=== PATIENT | female | born 1940 | race Caucasian/White ===

== ENCOUNTER → 2016-11-13 | Outpatient (CLI) | payer MEDICARE | LOC: SP 17:19 | PROVIDERS: ATTEND Internal Medicine | DX: I82.412 Acute embolism and thrombosis of left femoral vein (principal) | CPT/HCPCS: 93971 ==

== ENCOUNTER 2017-01-02 14:39 | Emergency (ER) | payer MEDICARE ==
--- NOTE | 2017-01-02 14:55 | ER Document Report ---
ED Medical Screen (RME) - General Stated Complaint: LEG RED AND SWELLING Time seen by provider: 14:52 Mode of Arrival: Wheelchair Information source: Patient Notes: 76-year-old female presents to ED for redness and swelling to the left lower leg for the last couple days. She states she was diagnosed with blood clots with the same symptoms. She states she is under the care of Dr. Rai Matias for blood clots at and has been on blood thinners for about 4 months. She states she's on the leg was. She states she is very sedentary. Spoke with Dr. Kimbrough will order a venous Doppler for the left lower extremity. I have greeted and performed a rapid initial assessment of this patient. A comprehensive ED assessment and evaluation of the patient, analysis of test results and completion of medical decision making process will be conducted by an additional ED providers. TRAVEL OUTSIDE OF THE [place] IN LAST 30 DAYS: No - Related Data Allergies/Adverse Reactions: lactose Allergy (Intermediate, Verified 03/19/16 14:01) Diarrhea azithromycin [From Zithromax] Allergy (Verified 03/19/16 14:01) cephalexin [Cephalexin] Allergy (Verified 02/05/16 03:26) hydroxyzine [Hydroxyzine] Allergy (Verified 02/05/16 03:26) oxycodone HCl [From Percodan] Allergy (Verified 02/05/16 03:26) piroxicam [From Feldene] Allergy (Verified 02/05/16 03:26) Past Medical History - Past Medical History Cardiac Medical History: Reports: Hx Hypercholesterolemia, Hx Hypertension Pulmonary Medical History: Reports: Hx Asthma GI Medical History: Reports: Hx Irritable Bowel Musculoskeltal Medical History: Reports Hx Arthritis, Reports Hx Fibromyalgia Psychiatric Medical History: Reports: Hx Depression Past Surgical History: Reports: Hx Appendectomy, Hx Cholecystectomy, Hx Genitourinary Surgery - bladder, Hx Hysterectomy, Hx Orthopedic Surgery - bilat total knee replacement, left foot, back, Hx Tonsillectomy - Immunizations Hx Diphtheria, Pertussis, Tetanus Vaccination: Yes Physical Exam - Vital signs Vitals: Temp Pulse Resp BP Pulse Ox 98.1 F 68 16 132/66 H 96 01/02/17 14:49 01/02/17 14:49 01/02/17 14:49 01/02/17 14:49 01/02/17 14:49 Course - Vital Signs Vital signs: Temp Pulse Resp BP Pulse Ox 98.1 F 68 16 132/66 H 96 01/02/17 14:49 01/02/17 14:49 01/02/17 14:49 01/02/17 14:49 01/02/17 14:49
[2017-01-02 15:41] LABS: ABSOLUTE EOSINOPHILS # (AUTO) 0.1 10^3/uL (0.0-0.6); ABSOLUTE LYMPHOCYTES (AUTO) 1.5 10^3/uL (0.5-4.7); ABSOLUTE MONOCYTES (AUTO) 0.7 10^3/uL (0.1-1.4); ABSOLUTE NEUT (AUTO) 3.7 10^3/uL (1.7-8.2); BASOPHILS % (AUTO) 0.6 % (0-2); EOSINOPHILS % (AUTO) 2.4 % (0-6); HEMATOCRIT 38.8 % (36.0-47.0); HEMOGLOBIN 13.1 g/dL (12.0-15.5); HGB HCT DIFFERENCE 0.5; MEAN CORPUSCULAR HEMOGLOBIN 31.2 pg (27.0-33.4); MEAN CORPUSCULAR HGB CONC 33.8 g/dL (32.0-36.0); MEAN CORPUSCULAR VOLUME 92 fl (80-97); MONOCYTES % (AUTO) 11.6 % (3-13); RED CELL DISTRIBUTION WIDTH 13.8 % (11.5-14.0); SEGMENTED NEUTROPHILS % (AUTO) 60.4 % (42-78); WHITE BLOOD COUNT 6.2 10^3/uL (4.0-10.5)
[2017-01-02 15:56] LABS: ALANINE AMINOTRANSFERASE 32 U/L (9-52); ALBUMIN 4.2 g/dL (3.5-5.0); ALKALINE PHOSPHATASE 72 U/L (38-126); ANION GAP 10 (5-19); ASPARTATE AMINO TRANSFERASE 24 U/L (14-36); BILIRUBIN,TOTAL 0.8 mg/dL (0.2-1.3); BLOOD UREA NITROGEN 19 mg/dL (7-20); CALCIUM 10.1 mg/dL (8.4-10.2); CARBON DIOXIDE 28 mmol/L (22-30); CHLORIDE 102 mmol/L (98-107); CREATININE RESULT 0.83 mg/dL (0.52-1.25); GLUCOSE 87 mg/dL (75-110); POTASSIUM 4.7 mmol/L (3.6-5.0); TOTAL PROTEIN 6.9 g/dL (6.3-8.2)
--- NOTE | 2017-01-02 16:55 | ER Document Report ---
ED Extremity Problem, Lower - General Chief Complaint: Leg Swelling Stated Complaint: LEG RED AND SWELLING Time seen by provider: 16:35 Mode of Arrival: Wheelchair Information source: Patient Notes: 76-year-old female presents to ED for redness and swelling to the left lower leg for the last couple of days. She states she's diagnosed with blood clots with the same symptoms. She is under the care of Dr. Gaitan for blood clots and has been on blood thinners for about 4 months. She states she has been very sedentary and she feels that these symptoms of the same as they were before. TRAVEL OUTSIDE OF THE [place] IN LAST 30 DAYS: No - HPI Patient complains to provider of: Other - States she is having redness and swelling to the left lower leg Location: Leg Occurred: Other - Couple days Onset/Duration: Gradual Quality of pain: No pain Severity: None Pain Level: Denies - Related Data Allergies/Adverse Reactions: lactose Allergy (Intermediate, Verified 01/02/17 14:54) Diarrhea azithromycin [From Zithromax] Allergy (Verified 01/02/17 14:54) cephalexin [Cephalexin] Allergy (Verified 01/02/17 14:54) hydroxyzine [Hydroxyzine] Allergy (Verified 01/02/17 14:54) oxycodone HCl [From Percodan] Allergy (Verified 01/02/17 14:54) piroxicam [From Feldene] Allergy (Verified 01/02/17 14:54) Past Medical History - General Information source: Patient - Social History Smoking Status: Never Smoker Chew tobacco use (# tins/day): No Frequency of alcohol use: None Drug Abuse: None Lives with: Family Family History: Reviewed & Not Pertinent Patient has suicidal ideation: No Patient has homicidal ideation: No - Past Medical History Cardiac Medical History: Reports: Hx DVT, Hx Hypercholesterolemia, Hx Hypertension Pulmonary Medical History: Reports: Hx Asthma EENT Medical History: Reports: None Neurological Medical History: Reports: None Endocrine Medical History: Reports: None Renal/ Medical History: Reports: None Malignancy Medical History: Reports: None GI Medical History: Reports: Hx Irritable Bowel Musculoskeltal Medical History: Reports Hx Arthritis, Reports Hx Fibromyalgia Skin Medical History: Reports None Psychiatric Medical History: Reports: Hx Depression Traumatic Medical History: Reports: None Infectious Medical History: Reports: None Past Surgical History: Reports: Hx Appendectomy, Hx Cholecystectomy, Hx Genitourinary Surgery - bladder, Hx Hysterectomy, Hx Orthopedic Surgery - bilat total knee replacement, left foot, back, Hx Tonsillectomy - Immunizations Hx Diphtheria, Pertussis, Tetanus Vaccination: Yes Review of Systems - Review of Systems Constitutional: No symptoms reported EENT: No symptoms reported Cardiovascular: No symptoms reported Respiratory: No symptoms reported Gastrointestinal: No symptoms reported Genitourinary: No symptoms reported Female Genitourinary: No symptoms reported Musculoskeletal: No symptoms reported, Ankle swelling Skin: Other - Mild pinkness to left lower leg Hematologic/Lymphatic: No symptoms reported Neurological/Psychological: No symptoms reported -: Yes All other systems reviewed and negative Physical Exam - Vital signs Vitals: Temp Pulse Resp BP Pulse Ox 98.1 F 68 16 132/66 H 96 01/02/17 14:49 01/02/17 14:49 01/02/17 14:49 01/02/17 14:49 01/02/17 14:49 Interpretation: Normal - General General appearance: Appears well, Alert - HEENT Head: Normocephalic, Atraumatic Eyes: Normal Pupils: PERRL - Respiratory Respiratory status: No respiratory distress Chest status: Nontender Breath sounds: Normal Chest palpation: Normal - Cardiovascular Rhythm: Regular Heart sounds: Normal auscultation Murmur: No - Abdominal Inspection: Normal Distension: No distension Bowel sounds: Normal Tenderness: Nontender Organomegaly: No organomegaly - Back Back: Normal, Nontender - Extremities General upper extremity: Normal inspection, Nontender, Normal color, Normal ROM , Normal temperature General lower extremity: Nontender, Normal ROM, Normal temperature, Normal weight bearing. No: Kyle's sign Calf: Other - Mild discoloration to lower leg with very mild edema denies any discomfort. No: Tender Ankle: No: Tender Foot: No: Tender - Neurological Neuro grossly intact: Yes Cognition: Normal Orientation: AAOx4 Mize Coma Scale Eye Opening: Spontaneous Mize Coma Scale Verbal: Oriented Larry Coma Scale Motor: Obeys Commands Larry Coma Scale Total: 15 Speech: Normal Motor strength normal: LUE, RUE, LLE, RLE Sensory: Normal - Psychological Associated symptoms: Normal affect, Normal mood - Skin Skin Temperature: Warm Skin Moisture: Dry Skin Color: Normal Course - Re-evaluation Re-evalutation: 01/02/17 16:59 Venous Doppler negative to left lower leg labs are all negative we'll discharge patient home to follow-up with Dr. Etienne. Patient instructed to follow-up with her primary doctor tomorrow. - Vital Signs Vital signs: Temp Pulse Resp BP Pulse Ox 98.1 F 68 16 132/66 H 96 01/02/17 14:49 01/02/17 14:49 01/02/17 14:49 01/02/17 14:49 01/02/17 14:49 - Laboratory Result Diagrams: 01/02/17 15:05 01/02/17 15:05 - Diagnostic Test Radiology reviewed: Image reviewed, Reports reviewed Discharge - Discharge Clinical Impression: patient concerned for DVT no DVT Condition: Stable Disposition: HOME, SELF-CARE Additional Instructions: You were seen today for concern of a DVT in your left lower leg. He stated that with some redness and swelling to the left lower leg. The Doppler is negative for any blood clots. An your labs are negative for infection. You will need to follow-up with Dr. Gaitan for any further concerns with blood thinner. Forms: Elevated Blood Pressure Referrals: TERA HOLLAND MD [Primary Care Provider] - Follow up as needed PATRICE ETIENNE MD [ACTIVE STAFF] - Follow up as needed
[2017-01-02 17:17] VITALS: BP 166/76
== END 2017-01-02 17:39 | disposition home or self-care (01) ==
LOC: ER 14:39
DX: M79.89 Other specified soft tissue disorders (principal); E78.00 Pure hypercholesterolemia, unspecified; I10 Essential (primary) hypertension; J45.909 Unspecified asthma, uncomplicated; Z88.3 Allergy status to other anti-infective agents; Z88.6 Allergy status to analgesic agent; Z86.718 Personal history of other venous thrombosis and embolism; Z90.49 Acquired absence of other specified parts of digestive tract; Z96.653 Presence of artificial knee joint, bilateral
CPT/HCPCS: 36415; 80053; 85025; 93971; 99284

== ENCOUNTER → 2017-05-01 | Outpatient (CLI) | payer MEDICARE ==
--- NOTE | 2017-05-02 11:17 | XCELERA REPORT ---
[address] [address] Lower Extremity Arterial Evaluation Name: KARISSA MARQUES Lucero Age: 76 yrs Gender: Female : 1940 Patient Status: Outpatient Patient Location: Study Date: 05/01/2017 01:36 PM Procedure: A color flow and duplex scan of the lower extremity arteries was performed bilaterally with velocity and waveform anaylsis. Ankle brachial indicies performed. PPG's performed. Reason For Study: PVD Ordering Physician: TRANG SWENSON Performed By: Madhavi Hernandez Measurements and Calculations Right Left SALESPERSON WIGS PSV 111.9 134.4 cm/sec Prox PFA PSV -61.1 -77.6 cm/sec Prox SFA PSV 81.6 136.7 cm/sec Mid SFA PSV -80.8 -88.6 cm/sec Dist SFA PSV -83.8 -89.1 cm/sec Prox Pop A PSV 74.6 172.9 cm/sec Dist CLAY PSV 66.7 68.4 cm/sec Dist ACCOUNTING TEACHER PSV 74.6 69.9 cm/sec Mark Pedis PSV 48.3 36.5 cm/sec Right Side Arterial Evaluation Normal velocity and triphasic waveforms noted from the Common Femoral artery to the infrageniculate vessels. 0-19% stenosis noted. Ankle Brachial index is 1.5. PPG's are normal. Left Side Arterial Evaluation Normal velocity and triphasic waveforms noted from the Common Femoral artery to the infrageniculate vessels. 0-19% stenosis noted. Ankle Brachial index is 1.3. PPG's are normal. Interpretation Summary No hemodynamically significant lesions in the bilateral lower extremities, on duplex imaging, at rest. : TRANG SWENSON > Piotr Templeton
== END ==
LOC: SP 13:34
PROVIDERS: ATTEND Podiatrist Foot & Ankle Surgery
DX: I73.9 Peripheral vascular disease, unspecified (principal)
CPT/HCPCS: 93925

== ENCOUNTER 2017-06-09 21:33 | Emergency (ER) | payer MEDICARE ==
[2017-06-09] MEDS ORDERED: ONDANSETRON HCL INJ/PF 4 MG/2 ML SDV IV ONE (22:07)
[2017-06-09] MEDS ORDERED: NORMAL SALINE 1000 ML 1,000 ML IV ONE (22:07)
[2017-06-09 22:10] LABS: ABSOLUTE LYMPHOCYTES (AUTO) 0.8 10^3/uL (0.5-4.7); ABSOLUTE MONOCYTES (AUTO) 0.5 10^3/uL (0.1-1.4); ABSOLUTE NEUT (AUTO) 6.7 10^3/uL (1.7-8.2); BASOPHILS % (AUTO) 0.3 % (0-2); EOSINOPHILS % (AUTO) 0.4 % (0-6); HEMATOCRIT 40.2 % (36.0-47.0); HEMOGLOBIN 13.5 g/dL (12.0-15.5); HGB HCT DIFFERENCE 0.3; LYMPHOCYTES % (AUTO) 10.2 % (13-45); MEAN CORPUSCULAR HGB CONC 33.6 g/dL (32.0-36.0); MEAN CORPUSCULAR VOLUME 92 fl (80-97); MONOCYTES % (AUTO) 6.1 % (3-13); RED BLOOD COUNT 4.35 10^6/uL (3.72-5.28); RED CELL DISTRIBUTION WIDTH 14.2 % (11.5-14.0); WHITE BLOOD COUNT 8.1 10^3/uL (4.0-10.5)
[2017-06-09] MEDS ORDERED: ONDANSETRON HCL INJ/PF 4 MG/2 ML SDV ONE (22:12)
[2017-06-09] MEDS ORDERED: KETOROLAC TROMETHAMINE INJ/PF 30 MG/1 ML SDV IV ONE (22:22)
[2017-06-09 22:56] LABS: ALANINE AMINOTRANSFERASE 27 U/L (9-52); ALBUMIN 3.8 g/dL (3.5-5.0); ALKALINE PHOSPHATASE 69 U/L (38-126); ANION GAP 10 (5-19); ASPARTATE AMINO TRANSFERASE 20 U/L (14-36); BILIRUBIN,DIRECT 0.3 mg/dL (0.0-0.4); BILIRUBIN,TOTAL 0.7 mg/dL (0.2-1.3); BLOOD UREA NITROGEN 14 mg/dL (7-20); CALCIUM 9.8 mg/dL (8.4-10.2); CARBON DIOXIDE 23 mmol/L (22-30); CHLORIDE 110 mmol/L (98-107); CREATININE RESULT 0.63 mg/dL (0.52-1.25); GLUCOSE 134 mg/dL (75-110); LIPASE 54.5 U/L (23-300); POTASSIUM 3.9 mmol/L (3.6-5.0); SODIUM 142.5 mmol/L (137-145); TOTAL PROTEIN 6.9 g/dL (6.3-8.2)
[2017-06-09 23:20] LABS: CREATINE KINASE MB 1.08 ng/mL (<4.55)
[2017-06-09 23:21] LABS: TROPONIN I < 0.012 ng/mL
--- NOTE | 2017-06-09 23:57 | RADIOLOGY REPORT (SQ) ---
EXAM DESCRIPTION: CT ABD/PELVIS WITH IV ONLY COMPLETED DATE/TIME: 06/09/2017 11:33 pm REASON FOR STUDY: abd pain, n/v/d COMPARISON: None. TECHNIQUE: CT scan of the abdomen and pelvis performed using helical scanning technique with dynamic intravenous contrast injection. No oral contrast. Images reviewed with lung, soft tissue, and bone windows. Reconstructed coronal and sagittal MPR images reviewed. Delayed images for evaluation of the urinary system also acquired. All images stored on PACS. All CT scanners at this facility use dose modulation, iterative reconstruction, and/or weight based d osing when appropriate to reduce radiation dose to as low as reasonably achievable (ALARA). [facility]: Dose Right [facility]: CareDose [facility]: Dose Right [facility]: Teradose 4D [facility]: [facility] CONTRAST TYPE AND DOSE: contrast/concentration: Isovue 370.00 mg/ml; Total Contrast Delivered: 100.0 ml; Total Saline Delivered: 72.0 ml RENAL FUNCTION: GFR > 60. RADIATION DOSE: Up-to-date CT equipment and radiation dose reduction techniques were employed. CTDIv ol: 14.8 - 18.5 mGy. DLP: 1588 mGy-cm.. LIMITATIONS: None. FINDINGS: LOWER CHEST: No significant findings. No nodules or infiltrates. LIVER: Normal size. No masses. No dilated ducts. SPLEEN: Normal size. No focal lesions. PANCREAS: No masses. No significant calcifications. No adjacent inflammation or peripancreatic fluid collections. Pancreatic duct not dilated. GALLBLADDER: Surgically absent. ADRENAL GLANDS: No significant masses or asymmetry. RIGHT KIDNEY AND URETER: No solid masses. No significant calcifications. No hydronephrosis or hyd roureter. LEFT KIDNEY AND URETER: No solid masses. No significant calcifications. No hydronephrosis or hydr oureter. AORTA AND VESSELS: No aneurysm. No dissection. Renal arteries, SMA, celiac without stenosis. RETROPERITONEUM: No retroperitoneal adenopathy, hemorrhage or masses. BOWEL AND PERITONEAL CAVITY: No masses or inflammatory changes. No free fluid or peritoneal masses. APPENDIX: Not visualized. PELVIS: Prior hysterectomy. Pelvic nerve stimulator device. No free fluid. Normal bladder. ABDOMINAL WALL: No masses. No hernias. BONES: No acute findings. OTHER: No other significant finding. IMPRESSION: NO ACUTE FINDING IN THE ABDOMEN OR PELVIS ON CT SCAN WITH IV CONTRAST. TECHNICAL DOCUMENTATION: JOB ID: [id number] Quality ID # [id number]: Final reports with documentation of one or more dose reduction techniques (e.g., Au tomated exposure control, adjustment of the mA and/or kV according to patient size, use of iterative reconstruction technique) 2010 [employer]- All Rights Reserved
[2017-06-10] MEDS ORDERED: ONDANSETRON ODT 4 MG TAB (6 TAB/DSPK) PO PRN (00:02)
--- NOTE | 2017-06-10 00:02 | EKG REPORT ---
SEVERITY:- ABNORMAL ECG - SINUS RHYTHM PROBABLE ANTEROSEPTAL INFARCT, AGE INDETERM : Confirmed by: Cari Petersen 10-Jun-2017 00:01:27
--- NOTE | 2017-06-10 00:08 | ER Document Report ---
ED GI/ - General Chief Complaint: Nausea/Vomiting/Diarrhea Stated Complaint: NAUSEA/VOMITING Time Seen by Provider: 06/09/17 21:42 Mode of Arrival: Medic Information source: Patient Notes: Patient is a 77-year-old female who presents to the ER via EMS today for nausea , vomiting, diarrhea for 3 days since starting Levaquin for cellulitis of the left ankle. She is complaining of some upper abdominal pain after all the vomiting. She denies any fevers, chills that she knows of. She admits to headache as well, states that it is in the front of her head and occurred today. She states she has not been able to keep anything down. TRAVEL OUTSIDE OF THE [place] IN LAST 30 DAYS: No - Related Data Allergies/Adverse Reactions: lactose Allergy (Intermediate, Verified 01/02/17 14:54) Diarrhea azithromycin [From Zithromax] Allergy (Verified 01/02/17 14:54) cephalexin [Cephalexin] Allergy (Verified 01/02/17 14:54) hydroxyzine [Hydroxyzine] Allergy (Verified 01/02/17 14:54) oxycodone HCl [From Percodan] Allergy (Verified 01/02/17 14:54) piroxicam [From Feldene] Allergy (Verified 01/02/17 14:54) Past Medical History - General Information source: Patient - Social History Smoking Status: Unknown if Ever Smoked Chew tobacco use (# tins/day): No Frequency of alcohol use: None Drug Abuse: None Family History: Reviewed & Not Pertinent Patient has suicidal ideation: No Patient has homicidal ideation: No - Past Medical History Cardiac Medical History: Reports: Hx DVT, Hx Hypercholesterolemia, Hx Hypertension Pulmonary Medical History: Reports: Hx Asthma Renal/ Medical History: Denies: Hx Peritoneal Dialysis GI Medical History: Reports: Hx Irritable Bowel Musculoskeltal Medical History: Reports Hx Arthritis, Reports Hx Fibromyalgia Psychiatric Medical History: Reports: Hx Depression Past Surgical History: Reports: Hx Appendectomy, Hx Cholecystectomy, Hx Genitourinary Surgery - bladder, Hx Hysterectomy, Hx Orthopedic Surgery - bilat total knee replacement, left foot, back, Hx Tonsillectomy - Immunizations Hx Diphtheria, Pertussis, Tetanus Vaccination: Yes Review of Systems - Review of Systems Constitutional: No symptoms reported EENT: No symptoms reported Cardiovascular: No symptoms reported Respiratory: No symptoms reported Gastrointestinal: See HPI Genitourinary: No symptoms reported Female Genitourinary: No symptoms reported Musculoskeletal: No symptoms reported Skin: No symptoms reported Hematologic/Lymphatic: No symptoms reported Neurological/Psychological: No symptoms reported Physical Exam - Vital signs Vitals: Temp Pulse Resp BP Pulse Ox 97.5 F 83 16 156/85 H 96 06/09/17 21:37 06/09/17 21:37 06/09/17 21:37 06/09/17 21:37 06/09/17 21:37 - Notes Notes: PHYSICAL EXAMINATION: GENERAL: wretching, in mild acute distress. HEAD: Atraumatic, normocephalic. EYES: Pupils equal round and reactive to light, extraocular movements intact, sclera anicteric, conjunctiva are normal. NECK: Normal range of motion, supple without lymphadenopathy LUNGS: CTAB and equal. No wheezes rales or rhonchi. HEART: Regular rate and rhythm without murmurs ABDOMEN: Soft,epigastric, luq tenderness. No guarding, no rebound BACK: no vertebral tenderness, normal ROM GI/: no CVA tenderness EXTREMITIES: Normal range of motion, no pitting edema. No cyanosis. NEUROLOGICAL: Cranial nerves grossly intact. Normal sensory/motor exams. PSYCH: Normal mood, normal affect. SKIN: Warm, Dry, normal turgor, 4cm in diameter of erythema to left medial ankle Course - Re-evaluation Re-evalutation: 06/10/17 00:07 Lab work is unremarkable today, cardiac workup was ordered because patient is 77 years old and has epigastric pain as a female, troponin is normal, EKG reveals sinus rhythm 84 bpm without evidence of acute ischemia or abnormality. CT of the abdomen with IV contrast reports no acute pathology. Patient feels much better after Toradol and multiple doses of Zofran, IV fluids. She is able to rest comfortably at this time and would like to go home. I will switch her antibiotic to Keflex as they did not try her on anything before putting her on Levaquin. - Vital Signs Vital signs: Temp Pulse Resp BP Pulse Ox 97.5 F 83 21 H 155/92 H 97 06/09/17 21:37 06/09/17 21:37 06/09/17 23:02 06/09/17 23:02 06/09/17 23:02 - Laboratory Result Diagrams: 06/09/17 22:00 06/09/17 22:36 Laboratory results interpreted by me: 06/09/17 06/09/17 22:00 22:36 RDW 14.2 H Seg Neutrophils % 83.0 H Lymphocytes % 10.2 L Chloride 110 H Glucose 134 H Discharge - Discharge Clinical Impression: Cellulitis Qualifiers: Site of cellulitis: extremity Site of cellulitis of extremity: lower extremity Laterality: left Qualified Code(s): L03.116 - Cellulitis of left lower limb N&V (nausea and vomiting) Qualifiers: Vomiting type: unspecified Vomiting Intractability: non-intractable Qualified Code(s): R11.2 - Nausea with vomiting, unspecified Abdominal pain Qualifiers: Abdominal location: epigastric Qualified Code(s): R10.13 - Epigastric pain Condition: Stable Disposition: HOME, SELF-CARE Instructions: Vomiting ([facility]) Additional Instructions: Return immediately for any new or worsening symptoms. Follow up with primary care provider, call tomorrow to make followup appointment. Stop Levaquin, start Bactrim. Take a probiotic [id number] if he get any diarrhea with antibiotic, it can occur with any antibiotics. Prescriptions: Ondansetron [Zofran Odt 4 mg Tablet] 4 mg PO Q4HP PRN #30 tab.rapdis PRN Reason: Sulfamethoxazole/Trimethoprim [Bactrim Ds Tablet] 1 each PO BID #20 tablet
[2017-06-10 00:52] VITALS: BP 160/85
== END 2017-06-10 00:52 | disposition home or self-care (01) ==
LOC: ER 21:33
DX: R11.2 Nausea with vomiting, unspecified (principal); R19.7 Diarrhea, unspecified; L03.116 Cellulitis of left lower limb; R10.13 Epigastric pain; R51 Headache; I10 Essential (primary) hypertension; J45.909 Unspecified asthma, uncomplicated; Z88.1 Allergy status to other antibiotic agents; Z88.5 Allergy status to narcotic agent; Z88.8 Allergy status to other drugs, medicaments and biological substances; Z87.19 Personal history of other diseases of the digestive system; Z90.49 Acquired absence of other specified parts of digestive tract
CPT/HCPCS: 93005; 99284; 96361; 96374; 96375; 36415; 82553; 82550; 83690; 85025; 80053; 84484; 74177; 93010; J1885; J2405; J7030; A9270

== ENCOUNTER 2017-06-12 15:58 | Emergency (ER) | payer MEDICARE ==
--- NOTE | 2017-06-12 16:40 | ER Document Report ---
ED Medical Screen (RME) - General Chief Complaint: Rectal Bleeding Stated Complaint: RECTAL BLEEDING Time Seen by Provider: 06/12/17 16:16 Mode of Arrival: Wheelchair Information source: Patient TRAVEL OUTSIDE OF THE [place] IN LAST 30 DAYS: No - HPI Patient complains to provider of: Bloody bowel movement Onset: This morning Notes: 06/12/17 16:39 Patient is a 77-year-old female who was sent from primary care provider's office for complaints of bloody bowel movements that started earlier this morning - Related Data Allergies/Adverse Reactions: lactose Allergy (Intermediate, Verified 06/12/17 16:11) Diarrhea azithromycin [From Zithromax] Allergy (Verified 06/12/17 16:11) cephalexin [Cephalexin] Allergy (Verified 06/12/17 16:11) hydroxyzine [Hydroxyzine] Allergy (Verified 06/12/17 16:11) oxycodone HCl [From Percodan] Allergy (Verified 06/12/17 16:11) piroxicam [From Feldene] Allergy (Verified 06/12/17 16:11) Past Medical History - Past Medical History Cardiac Medical History: Reports: Hx DVT, Hx Hypercholesterolemia, Hx Hypertension Pulmonary Medical History: Reports: Hx Asthma Renal/ Medical History: Denies: Hx Peritoneal Dialysis GI Medical History: Reports: Hx Irritable Bowel Musculoskeltal Medical History: Reports Hx Arthritis, Reports Hx Fibromyalgia Psychiatric Medical History: Reports: Hx Depression Past Surgical History: Reports: Hx Appendectomy, Hx Cholecystectomy, Hx Genitourinary Surgery - bladder, Hx Hysterectomy, Hx Orthopedic Surgery - bilat total knee replacement, left foot, back, Hx Tonsillectomy - Immunizations Hx Diphtheria, Pertussis, Tetanus Vaccination: Yes Physical Exam - Vital signs Vitals: Temp Pulse Resp BP Pulse Ox 98.3 F 81 16 128/70 H 94 06/12/17 16:05 06/12/17 16:05 06/12/17 16:05 06/12/17 16:05 06/12/17 16:05 Course - Vital Signs Vital signs: Temp Pulse Resp BP Pulse Ox 98.3 F 81 16 128/70 H 94 06/12/17 16:05 06/12/17 16:05 06/12/17 16:05 06/12/17 16:05 06/12/17 16:05
--- NOTE | 2017-06-12 19:25 | ER Document Report ---
ED GI Bleed / Rectal Pain - General Mode of Arrival: Wheelchair Information source: Patient TRAVEL OUTSIDE OF THE [place] IN LAST 30 DAYS: No - HPI Patient complains to provider of: Bright red bld from rect. <ARABELLA FONTANEZ - Last Filed: 06/12/17 22:52> <MARYANNE CASTLE - Last Filed: 06/13/17 03:00> - General Chief Complaint: Rectal Bleeding Stated Complaint: RECTAL BLEEDING Time Seen by Provider: 06/12/17 16:16 Notes: Patient is a 77-year-old female that presents to the emergency department today with complaints of rectal bleeding. Patient states she "passed a large clot" this morning. Patient states she went to see her primary care physician this afternoon and she had bloody mucus coming from her rectum as well. Patient states her primary physician called GI (Dr. Lux) who said she needed a "emergent colonoscopy". Patient states she has had diarrhea for the last 3 days. Patient is on antibiotics for a left leg infection. Patient states she had an associated headache, diaphoresis, and felt generally tired today. Patient denies any dizziness, nausea, or history of colon malignancy. (ARABELLA FONTANEZ) - Related Data Allergies/Adverse Reactions: lactose Allergy (Intermediate, Verified 06/12/17 16:11) Diarrhea azithromycin [From Zithromax] Allergy (Verified 06/12/17 16:11) cephalexin [Cephalexin] Allergy (Verified 06/12/17 16:11) hydroxyzine [Hydroxyzine] Allergy (Verified 06/12/17 16:11) oxycodone HCl [From Percodan] Allergy (Verified 06/12/17 16:11) piroxicam [From Feldene] Allergy (Verified 06/12/17 16:11) Past Medical History - General Information source: Patient - Social History Smoking Status: Never Smoker Chew tobacco use (# tins/day): No Frequency of alcohol use: None Drug Abuse: None Lives with: Family Family History: Reviewed & Not Pertinent - Past Medical History Cardiac Medical History: Reports: Hx DVT, Hx Hypercholesterolemia, Hx Hypertension Pulmonary Medical History: Reports: Hx Asthma GI Medical History: Reports: Hx Irritable Bowel Musculoskeltal Medical History: Reports Hx Arthritis, Reports Hx Fibromyalgia Psychiatric Medical History: Reports: Hx Depression Past Surgical History: Reports: Hx Appendectomy, Hx Cholecystectomy, Hx Genitourinary Surgery - bladder, Hx Hysterectomy, Hx Orthopedic Surgery - bilat total knee replacement, left foot, back, Hx Tonsillectomy - Immunizations Hx Diphtheria, Pertussis, Tetanus Vaccination: Yes <ARABELLA FONTANEZ - Last Filed: 06/12/17 22:52> Review of Systems - Review of Systems Constitutional: See HPI, Other - feels tired EENT: No symptoms reported Cardiovascular: denies: Dizziness Respiratory: No symptoms reported Gastrointestinal: See HPI, Diarrhea, Rectal bleeding. denies: Nausea Genitourinary: No symptoms reported Female Genitourinary: No symptoms reported Musculoskeletal: No symptoms reported Skin: No symptoms reported Hematologic/Lymphatic: No symptoms reported Neurological/Psychological: No symptoms reported -: Yes All other systems reviewed and negative <ARABELLA FONTANEZ - Last Filed: 06/12/17 22:52> Physical Exam <ARABELLA FONTANEZ - Last Filed: 06/12/17 22:52> <MARYANNE CASTLE - Last Filed: 06/13/17 03:00> - Vital signs Vitals: Temp Pulse Resp BP Pulse Ox 98.3 F 81 16 128/70 H 94 06/12/17 16:05 06/12/17 16:05 06/12/17 16:05 06/12/17 16:05 06/12/17 16:05 - Notes Notes: PHYSICAL EXAM GENERAL: Alert, interacts well. No acute distress. HEAD: Normocephalic, atraumatic. EYES: Pupils equal, round, and reactive to light. Extraocular movements intact. ENT: Oral mucosa moist, tongue midline. NECK: Full range of motion. Supple. Trachea midline. LUNGS: Clear to auscultation bilaterally, no wheezes, rales, or rhonchi. No respiratory distress. HEART: Regular rate and rhythm. No murmurs, gallops, or rubs. ABDOMEN: Soft, left lower quadrant tenderness with palpation. Non-distended. Bowel sounds present in all 4 quadrants. RECTAL: Rectal exam performed with Romana SANFORD in attendance. Non-thrombosed hemorrhoid at the 5 oclock position, no active bleeding. No blood or stool in rectal vault. Small amount of mucus. EXTREMITIES: Moves all 4 extremities spontaneously. No edema, radial and dorsalis pedis pulses 2/4 bilaterally. No cyanosis. NEUROLOGICAL: Alert and oriented x3. Normal speech. PSYCH: Normal affect, normal mood. SKIN: Warm, dry, normal turgor. No rashes or lesions noted. (ARABELLA FONTANEZ) Course - Laboratory Result Diagrams: 06/12/17 19:21 06/12/17 19:21 <ARABELLA FONTANEZ - Last Filed: 06/12/17 22:52> - Laboratory Result Diagrams: 06/12/17 19:21 06/12/17 19:21 <MARYANNE CASTLE - Last Filed: 06/13/17 03:00> - Re-evaluation Re-evalutation: 06/12/17 20:10 CBC unremarkable, hemoglobin actually improved compared to last visit on the previously was 13.5 now it is 13.9, stool is heme negative, no bleeding here in the emergency department, patient only had 2 episodes of bloody stools while at home, no evidence of life-threatening bleeding at this time. I do not know the exact etiology of her other lower GI bleed. I do recommend she follow- up with a flame cutting machine operator helper as an outpatient and return to the emergency department should she have further significant rectal bleeding. Patient is aware that if she continues to have small traces of blood in the toilet or on the toilet paper she does not need to return however she will return for large amounts of blood, dizziness or any new or concerning symptoms. Chemistries also unremarkable, occult blood negative. 06/12/17 20:15 I did speak with Dr. Holland who requested that I speak with Dr. Lux, Dr. Lux agrees that with a benign abdomen, increasing hemoglobin and no leukocytosis that she is safe to be seen as an outpatient, states he will even try and call her tomorrow to arrange to have her seen within the next 1-2 weeks. (MARYANNE CASTLE) - Vital Signs Vital signs: Temp Pulse Resp BP Pulse Ox 98.3 F 88 18 120/80 95 06/12/17 16:05 06/12/17 20:33 06/12/17 20:33 06/12/17 20:33 06/12/17 20:33 - Laboratory Laboratory results interpreted by me: 06/12/17 19:21 Calcium 10.7 H AST 40 H Discharge <ARABELLA FONTANEZ - Last Filed: 06/12/17 22:52> <MARYANNE CASTLE - Last Filed: 06/13/17 03:00> - Discharge Clinical Impression: Acute lower GI bleeding Condition: Stable Disposition: HOME, SELF-CARE Additional Instructions: Rectal Bleeding, Unclear Cause No definite cause has been found for the rectal bleeding you have experienced. Among the possible causes are internal or external hemorrhoids ( internal hemorrhoids can't be felt on the outside), an anal fissure (a crack at the anal ring), infections or inflammatory diseases of the colon, tumors or polyps, or diverticula (diverticula are outpouchings from the colon wall). To establish a cause for your bleeding (or at least make certain there is no serious problem such as a tumor), further evaluation will be necessary. This may include special X-rays, or passage of a scope up into the colon. Be sure to keep your follow-up appointment. Should you develop brisk bleeding, abdominal pain, fever, lightheadedness, or fever, call the doctor or return at once. I did speak with Dr. Lux who will call you in the next few days to arrange follow-up as an outpatient. Referrals: TERA HOLLAND MD [Primary Care Provider] - Follow up as needed MIGUEL LUX MD [ACTIVE STAFF] - Follow up in 1 week Scribe Attestation: 06/13/17 03:00 I personally performed the services described in the documentation, reviewed and edited the documentation which was dictated to the scribe in my presence, and it accurately records my words and actions. (MARYANNE CASTLE) Scribe Documentation - Scribe Written by Rita:: Rita Landeros, 06/12/2017 2311 acting as scribe for :: Rhiannon <ARABELLA FONTANEZ - Last Filed: 06/12/17 22:52>
[2017-06-12 19:49] LABS: ABSOLUTE EOSINOPHILS # (AUTO) 0.1 10^3/uL (0.0-0.6); ABSOLUTE LYMPHOCYTES (AUTO) 1.3 10^3/uL (0.5-4.7); ABSOLUTE MONOCYTES (AUTO) 0.7 10^3/uL (0.1-1.4); ABSOLUTE NEUT (AUTO) 4.6 10^3/uL (1.7-8.2); BASOPHILS % (AUTO) 0.6 % (0-2); EOSINOPHILS % (AUTO) 1.7 % (0-6); HEMATOCRIT 42.5 % (36.0-47.0); HEMOGLOBIN 13.9 g/dL (12.0-15.5); HGB HCT DIFFERENCE -0.8; LYMPHOCYTES % (AUTO) 18.6 % (13-45); MEAN CORPUSCULAR HEMOGLOBIN 30.5 pg (27.0-33.4); MEAN CORPUSCULAR HGB CONC 32.7 g/dL (32.0-36.0); MEAN CORPUSCULAR VOLUME 93 fl (80-97); MONOCYTES % (AUTO) 9.9 % (3-13); RED BLOOD COUNT 4.56 10^6/uL (3.72-5.28); RED CELL DISTRIBUTION WIDTH 13.7 % (11.5-14.0); SEGMENTED NEUTROPHILS % (AUTO) 69.2 % (42-78); WHITE BLOOD COUNT 6.7 10^3/uL (4.0-10.5)
[2017-06-12 19:56] LABS: ALANINE AMINOTRANSFERASE 45 U/L (9-52); ALBUMIN 4.7 g/dL (3.5-5.0); ALKALINE PHOSPHATASE 75 U/L (38-126); ANION GAP 9 (5-19); ASPARTATE AMINO TRANSFERASE 40 U/L (14-36); BILIRUBIN,DIRECT 0.4 mg/dL (0.0-0.4); BILIRUBIN,TOTAL 0.8 mg/dL (0.2-1.3); BLOOD UREA NITROGEN 17 mg/dL (7-20); CALCIUM 10.7 mg/dL (8.4-10.2); CARBON DIOXIDE 28 mmol/L (22-30); CHLORIDE 106 mmol/L (98-107); CREATININE RESULT 0.82 mg/dL (0.52-1.25); GLUCOSE 88 mg/dL (75-110); LIPASE 111.8 U/L (23-300); SODIUM 143.4 mmol/L (137-145); TOTAL PROTEIN 7.7 g/dL (6.3-8.2)
[2017-06-12 20:34] VITALS: BP 120/80
== END 2017-06-12 20:33 | disposition home or self-care (01) ==
LOC: ER 15:58
DX: K92.2 Gastrointestinal hemorrhage, unspecified (principal)
CPT/HCPCS: 36415; 80053; 82272; 83690; 85025; 86850; 86900; 86901; 99283

== ENCOUNTER 2018-01-19 13:13 | Emergency (ER) | payer MEDICARE ==
--- NOTE | 2018-01-19 13:52 | ER Document Report ---
ED Medical Screen (RME) - General Chief Complaint: Vaginal Bleeding Stated Complaint: VAGINAL BLEEDING Time Seen by Provider: 01/19/18 13:42 Notes: RME DISCLOSURE I have seen this patient as part of a Rapid Medical Evaluation and, if applicable, placed any initially appropriate orders. The patient will be seen and fully evaluated, including a full history and physical exam, by a provider ( in Main ED or Fast Track) when a room becomes available. 77-year-old female here with complaints of bright red vaginal bleeding that started earlier today. She is taking Eliquis for blood clots. She has also had some lightheadedness. She denies any abdominal pain but does have some pelvic pain. She had a hysterectomy many years ago and her uterus and one ovary was removed however she reports that she still has her cervix and the other ovary. She has a history of breast cancer and is in remission but denies any history of cervical uterine or ovarian cancer. She was sent here from the urgent care facility for further evaluation. NOTE: Patient is declining blood work and will only allow an ultrasound at this time TRAVEL OUTSIDE OF THE [place] IN LAST 30 DAYS: No - Related Data Allergies/Adverse Reactions: lactose Allergy (Intermediate, Verified 08/05/17 17:03) Diarrhea azithromycin [From Zithromax] Allergy (Verified 08/05/17 17:03) cephalexin [Cephalexin] Allergy (Verified 08/05/17 17:03) hydroxyzine [Hydroxyzine] Allergy (Verified 08/05/17 17:03) oxycodone HCl [From Percodan] Allergy (Verified 08/05/17 17:03) piroxicam [From Feldene] Allergy (Verified 08/05/17 17:03) Past Medical History - Past Medical History Cardiac Medical History: Reports: Hx DVT, Hx Hypercholesterolemia Denies: Hx Coronary Artery Disease, Hx Heart Attack, Hx Hypertension Pulmonary Medical History: Reports: Hx Asthma Denies: Hx Bronchitis, Hx COPD, Hx Pneumonia Neurological Medical History: Denies: Hx Cerebrovascular Accident, Hx Seizures Renal/ Medical History: Denies: Hx Peritoneal Dialysis GI Medical History: Reports: Hx Irritable Bowel Musculoskeltal Medical History: Reports Hx Arthritis, Reports Hx Fibromyalgia Psychiatric Medical History: Reports: Hx Depression Past Surgical History: Reports: Hx Appendectomy, Hx Cholecystectomy, Hx Genitourinary Surgery - bladder, Hx Hysterectomy, Hx Orthopedic Surgery - bilat total knee replacement, left foot, back, Hx Tonsillectomy - Immunizations Hx Diphtheria, Pertussis, Tetanus Vaccination: No History of Influenza Vaccine for 07/2017 - 12/2017 Season: Yes Influenza Administration Date for 07/2017 - 12/2017 Season: 05/28/17 Physical Exam - Vital signs Vitals: Temp Pulse Resp BP Pulse Ox 97.7 F 78 18 165/93 H 97 01/19/18 13:23 01/19/18 13:23 01/19/18 13:23 01/19/18 13:23 01/19/18 13:23 Course - Vital Signs Vital signs: Temp Pulse Resp BP Pulse Ox 97.7 F 78 18 165/93 H 97 01/19/18 13:23 01/19/18 13:23 01/19/18 13:23 01/19/18 13:23 01/19/18 13:23
--- NOTE | 2018-01-19 14:15 | ER Document Report ---
ED General - General Chief Complaint: Vaginal Bleeding Stated Complaint: VAGINAL BLEEDING Time Seen by Provider: 01/19/18 13:42 Mode of Arrival: Ambulatory TRAVEL OUTSIDE OF THE [place] IN LAST 30 DAYS: No - HPI Notes: 77-year-old female with a history of breast cancer who on Eliquis for history of blood clots presents today with sudden onset pelvic pain with a spot of bright red vaginal bleeding once today. Denies any pelvic trauma. Denies any pelvic insertion or recent sexual intercourse. denies any fevers or chills. Reports some dysuria with urination. Patient did have a total hysterectomy years ago with does have remaining one ovary. Patient states she has been in remission for breast cancer for a long time. Denies any history of cervical, uterine or ovarian cancer. Drinking and eating without issues. Denies fevers, chills, chest pain,palpitations, shortness of breath, dyspnea, nausea, vomiting, diarrhea, abdominal pain, blurred vision, double vision, loss of vision, speech changes, LH, dizziness, syncope, headaches, wheezing, ST, URI, neck pain, weakness, bowel or bladder dysfunction, saddle anesthesia, numbness or tingling in bilateral upper or lower extremities equally, muscle paralysis, weakness in bilateral upper or lower extremities equally or rash. Denies IV drug use. - Related Data Allergies/Adverse Reactions: lactose Allergy (Intermediate, Verified 08/05/17 17:03) Diarrhea azithromycin [From Zithromax] Allergy (Verified 08/05/17 17:03) cephalexin [Cephalexin] Allergy (Verified 08/05/17 17:03) hydroxyzine [Hydroxyzine] Allergy (Verified 08/05/17 17:03) levofloxacin Allergy (Verified 01/19/18 13:52) oxycodone HCl [From Percodan] Allergy (Verified 08/05/17 17:03) piroxicam [From Feldene] Allergy (Verified 08/05/17 17:03) sulfamethoxazole [From Bactrim] Allergy (Verified 01/19/18 13:52) trimethoprim [From Bactrim] Allergy (Verified 01/19/18 13:52) buffered medicine Allergy (Uncoded 01/19/18 13:52) Past Medical History - Social History Smoking Status: Never Smoker Chew tobacco use (# tins/day): No Frequency of alcohol use: None Drug Abuse: None Family History: Reviewed & Not Pertinent Patient has suicidal ideation: No Patient has homicidal ideation: No - Past Medical History Cardiac Medical History: Reports: Hx DVT, Hx Hypercholesterolemia Denies: Hx Coronary Artery Disease, Hx Heart Attack, Hx Hypertension Pulmonary Medical History: Reports: Hx Asthma Denies: Hx Bronchitis, Hx COPD, Hx Pneumonia Neurological Medical History: Denies: Hx Cerebrovascular Accident, Hx Seizures Renal/ Medical History: Denies: Hx Peritoneal Dialysis GI Medical History: Reports: Hx Irritable Bowel Musculoskeltal Medical History: Reports Hx Arthritis, Reports Hx Fibromyalgia Psychiatric Medical History: Reports: Hx Depression Past Surgical History: Reports: Hx Appendectomy, Hx Cholecystectomy, Hx Genitourinary Surgery - bladder, Hx Hysterectomy, Hx Orthopedic Surgery - bilat total knee replacement, left foot, back, Hx Tonsillectomy - Immunizations Hx Diphtheria, Pertussis, Tetanus Vaccination: No Hx Pneumococcal Vaccination: 10/28/12 Review of Systems - Review of Systems Notes: REVIEW OF SYSTEMS: CONSTITUTIONAL : Denies fever, chills, or sweats. Denies recent illness. EENT: Denies eye, ear, throat, or mouth pain or symptoms. Denies nasal or sinus congestion or discharge. Denies throat, tongue, or mouth swelling or difficulty swallowing. CARDIOVASCULAR: Denies chest pain. Denies palpitations or racing or irregular heart beat. Denies ankle edema. RESPIRATORY: Denies cough, cold, or chest congestion. Denies shortness of breath, difficulty breathing, or wheezing. GASTROINTESTINAL: Denies abdominal pain or distention. Denies nausea, vomiting , or diarrhea. Denies blood in vomitus, stools, or per rectum. Denies black, tarry stools. Denies constipation. GENITOURINARY: Denies difficulty urinating, painful urination, burning, frequency, blood in urine, or discharge. FEMALE GENITOURINARY: + vaginal bleeding. heavy or abnormal periods, irregular periods. Denies vaginal discharge or odor. MUSCULOSKELETAL: Denies back or neck pain or stiffness. Denies joint pain or swelling. SKIN: Denies rash, lesions or sores. HEMATOLOGIC : Denies easy bruising or bleeding. LYMPHATIC: Denies swollen, enlarged glands. NEUROLOGICAL: Denies confusion or altered mental status. Denies passing out or loss of consciousness. Denies dizziness or lightheadedness. Denies headache. Denies weakness or paralysis or loss of use of either side. Denies problems with gait or speech. Denies sensory loss, numbness, or tingling. Denies seizures. PSYCHIATRIC: Denies anxiety or stress. Denies depression, suicidal ideation, or homicidal ideation. ALL OTHER SYSTEMS REVIEWED AND NEGATIVE. PHYSICAL EXAMINATION: GENERAL: Well-appearing, well-nourished and in no acute distress. HEAD: Atraumatic, normocephalic. EYES: Pupils equal round and reactive to light, extraocular movements intact, conjunctiva are normal. ENT: Nares patent, oropharynx clear without exudates. Moist mucous membranes. NECK: Normal range of motion, supple without lymphadenopathy LUNGS: Breath sounds clear to auscultation bilaterally and equal. No wheezes rales or rhonchi. HEART: Regular rate and rhythm without murmurs ABDOMEN: Soft, nontender, nondistended abdomen. No guarding, no rebound. No masses appreciated. Female :External genitalia without erythema, exudate or discharge. No trauma. vaginal vault is without discharge. Cervix absent. . There is no bleeding noted. No cervical motion tenderness is seen. No masses are palpated. Musculoskeletal: Normal range of motion, no pitting or edema. No cyanosis. NEUROLOGICAL: Cranial nerves grossly intact. Normal speech, normal gait. Normal sensory, motor exams PSYCH: Normal mood, normal affect. SKIN: Warm, Dry, normal turgor, no rashes or lesions noted. Dictation was performed using [employer] voice recognition software Physical Exam - Vital signs Vitals: Temp Pulse Resp BP Pulse Ox 97.7 F 78 18 165/93 H 97 01/19/18 13:23 01/19/18 13:23 01/19/18 13:23 01/19/18 13:23 01/19/18 13:23 Course - Re-evaluation Re-evalutation: 01/19/18 17:52 77-year-old female history of blood clots who is currently on Eliquis with a history of a partial hysterectomy with only one ovary, presents to the emergency room for sudden onset right red blood when she urinated this morning. Reports she has frequency and urgency with urination. Patient denies any trauma, recent vaginal penetration or insertion. CBC negative for any leukocytosis or anemia. CMP negative for any renal or liver dysfunction, electrolytes without any disturbances. Coags normal. Urinalysis shows that patient does have a UTI. Ultrasound negative for any acute masses or findings, noted surgical clip on bladder. Discussed with patient that this could have likely been incidental finding however she does need to follow-up with her PCP because of her history with breast cancer. Even though that the ultrasound was negative for any masses. Discussed the patient that she may likely need a punch biopsy of vaginal wall to assess for any atypical cells. Take antibiotics as directed. Follow-up with PCP tomorrow. All questions and concerns answered by this provider. Patient agree with plan of care and verbalized understanding plan of care. Patient discharged home without incident. After performing a Medical Screening Examination, I estimate there is LOW risk for ACUTE APPENDICITIS, BOWEL OBSTRUCTION, ACUTE CHOLECYSTITIS, PERFORATED DIVERTICULITIS, INCARCERATED HERNIA, PANCREATITIS, PELVIC INFLAMMATORY DISEASE, PERFORATED ULCER, or TUBO-OVARIAN ABSCESS, thus I consider the discharge disposition reasonable. Also, there is no evidence or peritonitis, sepsis, or toxicity. I have reevaluated this patient multiple times and no significant life threatening changes are noted. The patient and I have discussed the diagnosis and risks, and we agree with discharging home with close follow-up with the understanding that symptoms and presentations can change. We also discussed returning to the Emergency Department immediately if new or worsening symptoms occur. We have discussed the symptoms which are most concerning (e.g., bloody stool, fever, changing or worsening pain, vomiting) that necessitate immediate return. 01/19/18 18:00 - Vital Signs Vital signs: Temp Pulse Resp BP Pulse Ox 97.7 F 78 18 165/93 H 97 01/19/18 13:23 01/19/18 13:23 01/19/18 13:23 01/19/18 13:23 01/19/18 13:23 - Laboratory Result Diagrams: 01/19/18 14:30 01/19/18 14:30 Laboratory results interpreted by me: 01/19/18 01/19/18 01/19/18 14:30 14:30 15:05 RDW 14.1 H BUN 23 H Calcium 10.8 H Urine Blood LARGE H Ur Leukocyte Esterase MODERATE H Urine Ascorbic Acid 40 H Discharge - Discharge Clinical Impression: UTI (urinary tract infection), resolved vaginal bleeding Condition: Good Disposition: HOME, SELF-CARE Instructions: Urinary Tract Infection ([facility]), Vaginal Bleeding ([facility]), Nitrofurantoin ([facility]) Additional Instructions: Vaginal Bleeding You are having an episode of abnormal bleeding. Causes of abnormal vaginal bleeding can include miscarriage or tubal , tumors such as cancer or benign fibroids, medication effects, or hormone imbalance. Testing can eliminate unsuspected , tumors, or infection as a cause. "Dysfunctional uterine bleeding" is due to hormone imbalance, and is especially common at times when the normal cycle is disturbed -- whether by recent , use of control pills or hormones, or impending menopause. If the bleeding is innocent, most commonly a short course of hormones is given to restore the uterus to normal. Sometimes, the normal menstrual cycle corrects itself naturally. Sometimes , brief hormone therapy, or even a D&C is required. Your physician will advise you. Treatment for anemia may be required if bleeding is severe. You should rest and avoid intercourse until the bleeding is controlled. Call the doctor or return for re-examination if you feel faint, have increasing pain, or have a major increase in the amount of bleeding. Follow-up with your PCP tomorrow. Transvaginal ultrasound was normal. you to have a UTI. Take antibiotics as directed. Increase oral fluids. If symptoms become worse return to the emergency room as soon as possible. Return immediately for any new or worsening symptoms. Follow up with primary care provider, call tomorrow to make followup appointment. Prescriptions: Nitrofurantoin Monohyd/M-Cryst [Macrobid 100 mg Capsule] 1 tab PO BID #20 capsule Referrals: TERA HOLLAND MD [Primary Care Provider] - Follow up tomorrow
[2018-01-19 15:36] LABS: ABSOLUTE BASOPHILS # (AUTO) 0.1 10^3/uL (0.0-0.2); ABSOLUTE EOSINOPHILS # (AUTO) 0.2 10^3/uL (0.0-0.6); ABSOLUTE LYMPHOCYTES (AUTO) 1.8 10^3/uL (0.5-4.7); ABSOLUTE MONOCYTES (AUTO) 0.7 10^3/uL (0.1-1.4); ABSOLUTE NEUT (AUTO) 6.1 10^3/uL (1.7-8.2); BASOPHILS % (AUTO) 0.6 % (0-2); EOSINOPHILS % (AUTO) 1.9 % (0-6); HEMATOCRIT 42.9 % (36.0-47.0); HEMOGLOBIN 14.3 g/dL (12.0-15.5); MEAN CORPUSCULAR HEMOGLOBIN 30.5 pg (27.0-33.4); MEAN CORPUSCULAR HGB CONC 33.3 g/dL (32.0-36.0); MEAN CORPUSCULAR VOLUME 92 fl (80-97); MONOCYTES % (AUTO) 7.9 % (3-13); PLATELET COUNT 275 10^3/uL (150-450); RED BLOOD COUNT 4.68 10^6/uL (3.72-5.28); RED CELL DISTRIBUTION WIDTH 14.1 % (11.5-14.0); SEGMENTED NEUTROPHILS % (AUTO) 68.6 % (42-78); TOTAL CELLS COUNTED % (AUTO) 100 %; WHITE BLOOD COUNT 8.8 10^3/uL (4.0-10.5)
[2018-01-19 15:37] LABS: APPEARANCE,URINE CLEAR; BILIRUBIN,URINE NEGATIVE (NEGATIVE); COLOR,URINE YELLOW; GLUCOSE, URINE NEGATIVE (NEGATIVE); KETONES,URINE NEGATIVE (NEGATIVE); LEUKOCYTE ESTERASE,URINE MODERATE (NEGATIVE); NITRITE,URINE NEGATIVE (NEGATIVE); PROTEIN,URINE NEGATIVE (NEGATIVE); URINE SPECIFIC GRAVITY 1.012; UROBILINOGEN,URINE NEGATIVE mg/dL (<2.0)
[2018-01-19 15:40] LABS: INTERNATIONAL RATION (INR) 0.98; PROTHROMBIN TIME 13.7 SEC (11.4-15.4)
[2018-01-19 15:41] LABS: PARTIAL THROMBOPLASTIN TIME 28.1 SEC (23.5-35.8)
[2018-01-19 15:49] LABS: URINE AMPHETAMINES SCREEN NEGATIVE; URINE BARBITURATES SCREEN NEGATIVE; URINE BENZODIAZEPINES SCREEN NEGATIVE; URINE COCAINE SCREEN NEGATIVE; URINE MARIJUANA (THC) SCREEN NEGATIVE; URINE METHADONE SCREEN NEGATIVE; URINE PHENCYCLIDINE SCREEN NEGATIVE
[2018-01-19 15:51] LABS: ALANINE AMINOTRANSFERASE 46 U/L (9-52); ALBUMIN 4.4 g/dL (3.5-5.0); ALKALINE PHOSPHATASE 63 U/L (38-126); ANION GAP 10 (5-19); ASPARTATE AMINO TRANSFERASE 20 U/L (14-36); BILIRUBIN,DIRECT 0.2 mg/dL (0.0-0.4); BILIRUBIN,TOTAL 0.4 mg/dL (0.2-1.3); BLOOD UREA NITROGEN 23 mg/dL (7-20); CALCIUM 10.8 mg/dL (8.4-10.2); CARBON DIOXIDE 30 mmol/L (22-30); CHLORIDE 104 mmol/L (98-107); GLUCOSE 105 mg/dL (75-110); SODIUM 143.9 mmol/L (137-145); TOTAL PROTEIN 7.4 g/dL (6.3-8.2)
--- NOTE | 2018-01-19 16:09 | RADIOLOGY REPORT (SQ) ---
EXAM DESCRIPTION: U/S NON OB PEL TV W/DOPPLER COMPLETED DATE/TIME: 01/19/2018 3:55 pm REASON FOR STUDY: bleeding eval mass or other etiology COMPARISON: CT 06/09/2017 TECHNIQUE: Dynamic and static grayscale images acquired of the pelvis via transabdominal and transva ginal approach and recorded on PACS. Additional selected color Doppler and spectral images recorded. LIMITATIONS: None. FINDINGS: UTERUS: Surgically absent RIGHT OVARY: No abnormal masses. RIGHT OVARY DOPPLER: Not identified LEFT OVARY DOPPLER: Not identified OTHER: Surgical clips anterior to the bladder. IMPRESSION: Status post hysterectomy and single oophorectomy. Neither ovary identified. Surgical clips anterior to the bladder. TECHNICAL DOCUMENTATION: JOB ID: [id number] [employer]- All Rights Reserved Reading location - IP/workstation name: [email or web address]
[2018-01-19 17:49] VITALS: BP 147/87
== END 2018-01-19 17:49 | disposition home or self-care (01) ==
LOC: ER 13:13
DX: N39.0 Urinary tract infection, site not specified (principal); N93.9 Abnormal uterine and vaginal bleeding, unspecified; R10.2 Pelvic and perineal pain; R30.0 Dysuria; R35.0 Frequency of micturition; R39.15 Urgency of urination; J45.909 Unspecified asthma, uncomplicated; Z85.3 Personal history of malignant neoplasm of breast; Z90.79 Acquired absence of other genital organ(s); Z90.710 Acquired absence of both cervix and uterus; Z79.01 Long term (current) use of anticoagulants; Z88.8 Allergy status to other drugs, medicaments and biological substances; Z88.1 Allergy status to other antibiotic agents; Z88.5 Allergy status to narcotic agent; Z86.718 Personal history of other venous thrombosis and embolism; Z90.49 Acquired absence of other specified parts of digestive tract
CPT/HCPCS: 36415; 76830; 80053; 80307; 81001; 85025; 85610; 85730; 86850; 86900; 86901; 87086; 93976; 99284

== ENCOUNTER 2020-09-23 14:12 | Emergency (ER) | payer MEDICARE ==
--- NOTE | 2020-09-23 16:42 | ER Document Report ---
ED Extremity Problem, Lower - General Stated Complaint: ANKLE SWELLING Time Seen by Provider: 09/23/20 16:29 Primary Care Provider: TERA HOLLAND MD [Primary Care Provider] - Follow up as needed Information source: Patient Notes: Patient is a 80-year-old female is brought into the emergency room by her daughter with complaint of left lower extremity redness and swelling. Daughter states that patient just moved back here from [place] TRAVEL OUTSIDE OF THE [place] IN LAST 30 DAYS: No - Related Data Allergies/Adverse Reactions: lactose Allergy (Intermediate, Verified 08/05/17 17:03) Diarrhea azithromycin [From Zithromax] Allergy (Verified 08/05/17 17:03) cephalexin [Cephalexin] Allergy (Verified 08/05/17 17:03) hydroxyzine [Hydroxyzine] Allergy (Verified 08/05/17 17:03) levofloxacin Allergy (Verified 01/19/18 13:52) oxycodone HCl [From Percodan] Allergy (Verified 08/05/17 17:03) piroxicam [From Feldene] Allergy (Verified 08/05/17 17:03) sulfamethoxazole [From Bactrim] Allergy (Verified 01/19/18 13:52) trimethoprim [From Bactrim] Allergy (Verified 01/19/18 13:52) buffered medicine Allergy (Uncoded 01/19/18 13:52) Past Medical History - Social History Smoking Status: Unknown if Ever Smoked Family History: Reviewed & Not Pertinent Patient has homicidal ideation: No - Past Medical History Cardiac Medical History: Reports: Hx DVT, Hx Hypercholesterolemia Denies: Hx Coronary Artery Disease, Hx Heart Attack, Hx Hypertension Pulmonary Medical History: Reports: Hx Asthma Denies: Hx Bronchitis, Hx COPD, Hx Pneumonia Neurological Medical History: Denies: Hx Cerebrovascular Accident, Hx Seizures Renal/ Medical History: Denies: Hx Peritoneal Dialysis GI Medical History: Reports: Hx Irritable Bowel Musculoskeletal Medical History: Reports Hx Arthritis, Reports Hx Fibromyalgia Psychiatric Medical History: Reports: Hx Depression Past Surgical History: Reports: Hx Appendectomy, Hx Cholecystectomy, Hx Genitourinary Surgery - bladder, Hx Hysterectomy, Hx Orthopedic Surgery - bilat total knee replacement, left foot, back, Hx Tonsillectomy - Immunizations Hx Diphtheria, Pertussis, Tetanus Vaccination: No Hx Pneumococcal Vaccination: 10/28/12 Physical Exam - Vital signs Vitals: Temp Pulse Resp BP Pulse Ox 98.0 F 84 18 152/96 H 96 09/23/20 15:32 09/23/20 15:32 09/23/20 15:32 09/23/20 15:32 09/23/20 15:32 Course - Vital Signs Vital signs: Temp Pulse Resp BP Pulse Ox 98.0 F 84 18 152/96 H 96 09/23/20 15:32 09/23/20 15:32 09/23/20 15:32 09/23/20 15:32 09/23/20 15:32 Discharge - Discharge Referrals: TERA HOLLAND MD [Primary Care Provider] - Follow up as needed
--- NOTE | 2020-09-23 16:58 | ER Document Report ---
ED Medical Screen (RME) - General Chief Complaint: Leg Swelling Stated Complaint: ANKLE SWELLING Time Seen by Provider: 09/23/20 16:29 Primary Care Provider: TERA HOLLAND MD [Primary Care Provider] - Follow up as needed Information source: Patient, Relative Notes: Patient is a 80-year-old female is brought into the emergency room by her daughter with complaint of left lower extremity redness and swelling. Daughter states that patient just moved back here from [place] for his infusions of patient's left lower extremity for several months ago when there was a severe ulceration he also is actually some better and it looked better 5 days ago when addressed today. Patient has a moderate amount of edema seen around the lower portion of the ankle up to about mid calf. She has discoloration of the skin with some mild weeping noted. Daughter also states that she was seeing wound care in [place] they used [employer] in the area and it was not helping it heal but they sent her home with nothing. Patient denies any fever or shortness of breath at this time. She does have mild amount of discomfort extracted ambulate. Daughter also states that the right ankle started to swell as well. Physical examination: Patient is a well-nourished well-developed 32-year-old female no apparent distress on examination. She did ambulate in on her walker. Cardiac: Displays a rate of 84 bpm on monitor but no murmurs were auscultated. Lungs: Bilateral breath sounds are somewhat decreased throughout no rhonchi rales or wheeze heard. Lower extremity patient's left lower extremity has 2+ edema noted to palpation. There is moderate amount of erythema with 2 nieces that appear to have breaking the skin. There is warmth felt throughout the entire lower extremity. Moderate moderate discomfort to light palpation in the area. Also noted on the right side no erythema is noted but 2+ edema is also noted. Patient does not have any history of congestive heart failure or heart problems only history of hypertension. He has no history of diabetes. I have greeted and performed a rapid initial assessment of this patient. A comprehensive ED assessment and evaluation of the patient, analysis of test results and completion of the medical decision making process will be conducted by additional ED providers. Dictation of this chart was performed using voice recognition software; therefore, there may be some unintended grammatical errors. TRAVEL OUTSIDE OF THE U.S. IN LAST 30 DAYS: No - Related Data Allergies/Adverse Reactions: lactose Allergy (Intermediate, Verified 08/05/17 17:03) Diarrhea azithromycin [From Zithromax] Allergy (Verified 08/05/17 17:03) cephalexin [Cephalexin] Allergy (Verified 08/05/17 17:03) hydroxyzine [Hydroxyzine] Allergy (Verified 08/05/17 17:03) levofloxacin Allergy (Verified 01/19/18 13:52) oxycodone HCl [From Percodan] Allergy (Verified 08/05/17 17:03) piroxicam [From Feldene] Allergy (Verified 08/05/17 17:03) sulfamethoxazole [From Bactrim] Allergy (Verified 01/19/18 13:52) trimethoprim [From Bactrim] Allergy (Verified 01/19/18 13:52) buffered medicine Allergy (Uncoded 01/19/18 13:52) Past Medical History - Past Medical History Cardiac Medical History: Reports: Hx DVT, Hx Hypercholesterolemia Denies: Hx Coronary Artery Disease, Hx Heart Attack, Hx Hypertension Pulmonary Medical History: Reports: Hx Asthma Denies: Hx Bronchitis, Hx COPD, Hx Pneumonia Neurological Medical History: Denies: Hx Cerebrovascular Accident, Hx Seizures Renal/ Medical History: Denies: Hx Peritoneal Dialysis GI Medical History: Reports: Hx Irritable Bowel Musculoskeltal Medical History: Reports Hx Arthritis, Reports Hx Fibromyalgia Psychiatric Medical History: Reports: Hx Depression Past Surgical History: Reports: Hx Appendectomy, Hx Cholecystectomy, Hx Genitourinary Surgery - bladder, Hx Hysterectomy, Hx Orthopedic Surgery - bilat total knee replacement, left foot, back, Hx Tonsillectomy - Immunizations Hx Diphtheria, Pertussis, Tetanus Vaccination: No Physical Exam - Vital signs Vitals: Temp Pulse Resp BP Pulse Ox 98.0 F 84 18 152/96 H 96 09/23/20 15:32 09/23/20 15:32 09/23/20 15:32 09/23/20 15:32 09/23/20 15:32 Course - Vital Signs Vital signs: Temp Pulse Resp BP Pulse Ox 98.0 F 84 18 152/96 H 96 09/23/20 15:32 09/23/20 15:32 09/23/20 15:32 09/23/20 15:32 09/23/20 15:32 Doctor's Discharge - Discharge Referrals: TERA HOLLAND MD [Primary Care Provider] - Follow up as needed
[2020-09-23 18:09] LABS: ABSOLUTE BASOPHILS # (AUTO) 0.1 10^3/uL (0.0-0.2); ABSOLUTE EOSINOPHILS # (AUTO) 0.2 10^3/uL (0.0-0.6); ABSOLUTE LYMPHOCYTES (AUTO) 1.7 10^3/uL (0.5-4.7); ABSOLUTE MONOCYTES (AUTO) 0.7 10^3/uL (0.1-1.4); BASOPHILS % (AUTO) 1.1 % (0-2); EOSINOPHILS % (AUTO) 3.2 % (0-6); HEMATOCRIT 39.2 % (36.0-47.0); LYMPHOCYTES % (AUTO) 26.1 % (13-45); MEAN CORPUSCULAR HEMOGLOBIN 29.4 pg (27.0-33.4); MEAN CORPUSCULAR HGB CONC 33.2 g/dL (32.0-36.0); MEAN CORPUSCULAR VOLUME 88 fl (80-97); MONOCYTES % (AUTO) 9.8 % (3-13); PLATELET COUNT 231 10^3/uL (150-450); RED BLOOD COUNT 4.44 10^6/uL (3.72-5.28); RED CELL DISTRIBUTION WIDTH 15.1 % (11.5-14.0); SEGMENTED NEUTROPHILS % (AUTO) 59.8 % (42-78); TOTAL CELLS COUNTED % (AUTO) 100 %; WHITE BLOOD COUNT 6.7 10^3/uL (4.0-10.5)
[2020-09-23 18:25] LABS: ALBUMIN 4.2 g/dL (3.5-5.0); ALKALINE PHOSPHATASE 80 U/L (38-126); ANION GAP 7 (5-19); ASPARTATE AMINO TRANSFERASE 27 U/L (14-36); BILIRUBIN,DIRECT 0.1 mg/dL (0.0-0.4); BILIRUBIN,TOTAL 0.5 mg/dL (0.2-1.3); BLOOD UREA NITROGEN 13 mg/dL (7-20); CALCIUM 9.9 mg/dL (8.4-10.2); CARBON DIOXIDE 28 mmol/L (22-30); CHLORIDE 104 mmol/L (98-107); GLUCOSE 99 mg/dL (75-110); POTASSIUM 4.4 mmol/L (3.6-5.0); TOTAL PROTEIN 6.8 g/dL (6.3-8.2)
--- NOTE | 2020-09-23 21:45 | ER Document Report ---
ED General - General Chief Complaint: Leg Swelling Stated Complaint: ANKLE SWELLING Time Seen by Provider: 09/23/20 16:29 Primary Care Provider: TERA HOLLAND MD [Primary Care Provider] - Follow up as needed Notes: Patient presents to the ER for evaluation of area of erythema and swelling over the anterior aspect of the left lower extremity times several days. Per the daughter, the patient has had infected ulcers in this extremity in the past. The patient does not have a history of diabetes. The patient denies fever. She denies nausea or vomiting. She is ambulatory but states it causes pain in the erythematous area. Nursing notes reviewed and past medical, social, and family histories reviewed and validated. TRAVEL OUTSIDE OF THE [place] IN LAST 30 DAYS: No - Related Data Allergies/Adverse Reactions: lactose Allergy (Intermediate, Verified 08/05/17 17:03) Diarrhea azithromycin [From Zithromax] Allergy (Verified 08/05/17 17:03) cephalexin [Cephalexin] Allergy (Verified 08/05/17 17:03) hydroxyzine [Hydroxyzine] Allergy (Verified 08/05/17 17:03) levofloxacin Allergy (Verified 01/19/18 13:52) oxycodone HCl [From Percodan] Allergy (Verified 08/05/17 17:03) piroxicam [From Feldene] Allergy (Verified 08/05/17 17:03) sulfamethoxazole [From Bactrim] Allergy (Verified 01/19/18 13:52) trimethoprim [From Bactrim] Allergy (Verified 01/19/18 13:52) buffered medicine Allergy (Uncoded 01/19/18 13:52) Past Medical History - General Information source: Patient, Relative - Social History Smoking Status: Never Smoker Chew tobacco use (# tins/day): No Frequency of alcohol use: None Drug Abuse: None Lives with: Family Family History: Reviewed & Not Pertinent Patient has suicidal ideation: No Patient has homicidal ideation: No - Past Medical History Cardiac Medical History: Reports: Hx DVT, Hx Hypercholesterolemia Denies: Hx Coronary Artery Disease, Hx Heart Attack, Hx Hypertension Pulmonary Medical History: Reports: Hx Asthma Denies: Hx Bronchitis, Hx COPD, Hx Pneumonia EENT Medical History: Reports: None Neurological Medical History: Denies: Hx Cerebrovascular Accident, Hx Seizures Endocrine Medical History: Reports: None Renal/ Medical History: Denies: Hx Peritoneal Dialysis Malignancy Medical History: Reports: None GI Medical History: Reports: Hx Irritable Bowel Musculoskeletal Medical History: Reports Hx Arthritis, Reports Hx Fibromyalgia Skin Medical History: Reports Hx Cellulitis Psychiatric Medical History: Reports: Hx Depression Traumatic Medical History: Reports: None Infectious Medical History: Reports: None Past Surgical History: Reports: Hx Appendectomy, Hx Cholecystectomy, Hx Genitourinary Surgery - bladder, Hx Hysterectomy, Hx Orthopedic Surgery - bilat total knee replacement, left foot, back, Hx Tonsillectomy - Immunizations Hx Diphtheria, Pertussis, Tetanus Vaccination: No Hx Pneumococcal Vaccination: 10/28/12 Review of Systems - Review of Systems Notes: Constitutional: Negative for fever. HENT: Negative for sore throat. Eyes: Negative for visual changes. Cardiovascular: Negative for chest pain. Respiratory: Negative for shortness of breath. Gastrointestinal: Negative for abdominal pain, vomiting or diarrhea. Genitourinary: Negative for dysuria. Musculoskeletal: Negative for back pain. Skin: Positive for pain and erythema in left leg. Neurological: Negative for headaches, weakness or numbness. 10 point ROS negative except as marked above and in HPI. Physical Exam - Vital signs Vitals: Temp Pulse Resp BP Pulse Ox 98.0 F 84 18 152/96 H 96 09/23/20 15:32 09/23/20 15:32 09/23/20 15:32 09/23/20 15:32 09/23/20 15:32 - Notes Notes: CONSTITUTIONAL: Well appearing in no acute distress SKIN: There is a 10 to 20 cm area of erythema over the anterior aspect of the left lower extremity around the quach. There are what appear to be several small breaks in the skin within this area. There is no obvious fluid collection or abscess noted. EYES: Extraocular movements are grossly intact, clear conjunctiva HENT: Normocephalic, atraumatic, moist mucus membranes NECK: No obvious swelling, normal range of motion PULMONARY: Normal chest rise and fall, no respiratory distress or stridor CARDIOVASCULAR: Regular rate, distal extremities are warm and well perfused NEUROLOGIC: Normal speech, moves all extremities MUSCULOSKELETAL: No gross deformities, atraumatic PSYCHIATRIC: Normal mood and affect Course - Re-evaluation Re-evalutation: 09/23/20 21:48 Rechecked patient who has responded well to treatment in the ER. Discussed with patient: results, diagnosis, treatment plan, and need for follow-up. Return to the emergency department warnings were given. All questions and concerns were a ddressed. The plan is agreed with and understood. Patient is stable and ready for discharge. - Vital Signs Vital signs: Temp Pulse Resp BP Pulse Ox 98.0 F 84 18 152/96 H 96 09/23/20 15:32 09/23/20 15:32 09/23/20 15:32 09/23/20 15:32 09/23/20 15:32 - Laboratory Result Diagrams: 09/23/20 17:45 09/23/20 17:45 Laboratory results interpreted by me: 09/23/20 17:45 RDW 15.1 H Discharge - Discharge Clinical Impression: Cellulitis of lower extremity Qualifiers: Laterality: left Qualified Code(s): L03.116 - Cellulitis of left lower limb Condition: Good Disposition: HOME, SELF-CARE Instructions: Cellulitis ([facility]) Prescriptions: Clindamycin HCl [Cleocin HCl] 300 mg PO TID 10 Days #60 capsule Referrals: TERA HOLLAND MD [Primary Care Provider] - Follow up as needed
[2020-09-23 21:57] VITALS: BP 163/84
== END 2020-09-23 21:57 | disposition home or self-care (01) ==
LOC: ER 14:12
DX: L03.116 Cellulitis of left lower limb (principal); J45.909 Unspecified asthma, uncomplicated; Z91.018 Allergy to other foods; Z88.1 Allergy status to other antibiotic agents; Z88.8 Allergy status to other drugs, medicaments and biological substances; Z88.6 Allergy status to analgesic agent; Z88.5 Allergy status to narcotic agent
CPT/HCPCS: 36415; 80053; 83605; 85025; 87040; 99283

== ENCOUNTER → 2020-11-21 | Outpatient (CLI) | payer MEDICARE ==
--- NOTE | 2020-11-21 13:17 | ER [facility] ASSESSMENT REPORT ---
Intake - In the Last 14 days Have you traveled outside [place]?: No Have you been in close contact with someone CONFIRMED: No Worked in Healthcare?: No - Symptoms Subjective Fever([place] feverish): No Chills: No Muscule Aches: No Runny Nose: No Sore Throat: No Cough (New or worsening chronic cough): No Shortness of breath: No Nausea or Vomiting: Yes Headache: No Abdominal Pain: No Diarrhea(3 or more loose stools in last 24 hours): Yes - Do you have any of the following Chronic lung disease: Asthma or emphysema or COPD: Yes Chronic Lung Disease Comment: asthma Cystic Fibrosis: No Diabetes: No High Blood Pressure: Yes Cardiovascular Disease: No Chronic Kidney Disease: No Chronic Liver Disease: No Chronic blood disorder like Sickle Cell Disease: No Weak immune system due to disease or medication: No Neurologic condition that limits movement: No Developmental delay - Moderate to Severe: No Recent (within past 2 weeks) or current : No Morbid Obesity (>100 pounds over ideal weight): No - Objective Temperature: 98.0 F Pulse Rate: 80 Respiratory Rate: 17 Blood Pressure: 189/81 O2 Sat by Pulse Oximetry: 89 Objective: Given above, testing performed: If Testing Performed: Test Specimen Type Sent to General - General Mode of Arrival: Ambulatory Information source: Patient, Relative Notes: Patient presents to the [facility] for screening for the coronavirus. Patient has chronic diarrhea and her provider wanted her screened for Covid. Patient denies any respiratory symptoms. - Related Data Allergies/Adverse Reactions: lactose Allergy (Intermediate, Verified 08/05/17 17:03) Diarrhea azithromycin [From Zithromax] Allergy (Verified 08/05/17 17:03) cephalexin [Cephalexin] Allergy (Verified 08/05/17 17:03) hydroxyzine [Hydroxyzine] Allergy (Verified 08/05/17 17:03) levofloxacin Allergy (Verified 01/19/18 13:52) oxycodone HCl [From Percodan] Allergy (Verified 08/05/17 17:03) piroxicam [From Feldene] Allergy (Verified 08/05/17 17:03) sulfamethoxazole [From Bactrim] Allergy (Verified 01/19/18 13:52) trimethoprim [From Bactrim] Allergy (Verified 01/19/18 13:52) buffered medicine Allergy (Uncoded 01/19/18 13:52) Past Medical History - General Information source: Patient, Relative - Social History Smoking Status: Never Smoker Family History: Reviewed & Not Pertinent - Past Medical History Cardiac Medical History: Reports: Hx DVT, Hx Hypercholesterolemia Pulmonary Medical History: Reports: Hx Asthma Denies: Hx Bronchitis, Hx COPD, Hx Pneumonia Neurological Medical History: Denies: Hx Cerebrovascular Accident, Hx Seizures Renal/ Medical History: Denies: Hx Peritoneal Dialysis GI Medical History: Reports: Hx Irritable Bowel Musculoskeletal Medical History: Reports Hx Arthritis, Reports Hx Fibromyalgia Skin Medical History: Reports Hx Cellulitis Psychiatric Medical History: Reports: Hx Depression Past Surgical History: Reports: Hx Appendectomy, Hx Cholecystectomy, Hx Genitourinary Surgery - bladder, Hx Hysterectomy, Hx Orthopedic Surgery - bilat total knee replacement, left foot, back, Hx Tonsillectomy Physical Exam - Notes Notes: The patient was evaluated during the global Covid 19 pandemic, and that diagnosis was suspected/considered upon their initial presentation. Their evaluation and testing was consistent with current guidelines for patients who present with complaints or symptoms that may be related to Covid 19. Full physical exam could not be performed due to covid 19 isolation protocols. Constitutional: Nontoxic appearance, no acute distress Eyes: Nonicteric, sclera clear Cardiovascular: Heart rate and rhythm regular Respiratory: Breath sounds clear bilaterally, nonlabored breathing, no use of accessory muscles, no tachypnea Gastrointestinal: Abdomen not distended Muculoskeletal: Moves all extremities well, normal gait Skin: Normal color Neuro: Awake alert oriented, normal speech Psych: Normal mood and affect Diagnostic Results Laboratory Results: 13:35 Reviewed patient's vital signs, patient with initial pulse ox of 89%. Patient had already left, provider attempted to call number on file, message left for patient to return phone call. 14:15 attempted to call pt multiple times, no answer. 14:45 attempted to call patient's phone number that had worked initially with her visit here today. No answer when attempted to contact patient. Call was then [facility] to [facility] department advising them of need for welfare check and to encourage patient to seek treatment at the emergency department for a low pulse oximetry reading, in the setting of recent Covid testing. [place]patch with the county advised that they will have someone call back regarding status of welfare check. 15:10 patient's daughter called back to the [facility] and spoke with Loreeli pineda ccessed who stated that she would be taking patient back to the emergency department for evaluation after speaking to a deputy that presented to their home. Patient Education/Counseling Counseling/Education: Patient was provided with discharge information including: As a person under investigation for Covid 19, the [facility] of Health and Human Services, division of public health advises you to adhere to the following guidance until your test results are reported to you. If your test result is positive, you will receive additional information from your provider and your local health department at that time. Remain at home until you are cleared by the health provider or public health authorities. Keep a log of visitors to your home, notify any visitors to your home of your isolation status. If you plan to move to a new address or leave the county, notify the local health department in your County. Call your doctor or seek care if you have an urgent medical need. Before seeking medical care, call ahead to get instructions from the provider before arriving at the medical office clinic or hospital. Notify them that you are being tested for the virus that causes Covid 19 so that arrangements can be made, as necessary, to prevent transmission to others in the healthcare setting. Next, notify the local health department in your county. If a medical emergency arises and you need to call 911, inform the first responders that you are being tested for the virus that causes Covid 19. Next, notify the local health department in your county. [facility] Discharge - Discharge Clinical Impression: Encounter for screening for COVID-19 Condition: Stable Disposition: Home; Selfcare
[2020-11-21 13:41] VITALS: BP 189/81
== END ==
LOC: RDC 12:58
PROVIDERS: ATTEND Nurse Practitioner Family
DX: Z20.822 Contact with and (suspected) exposure to COVID-19 (principal)
CPT/HCPCS: 99202; U0003; G0463; C9803; 87635; 99211